=== PATIENT | male | born 1970 ===

== ENCOUNTER 2018-04-11 18:22 | Emergency (ER) | payer SELFPAY ==
[2018-04-11 18:42] VITALS: BP 145/83; PULSE 88; RESP 18; TEMP 99.1; O2SAT 97
[2018-04-11] MEDS ORDERED: Oxycodone/Acetaminophen 5/325 mg Tab PO STA (18:51)
--- NOTE | 2018-04-11 18:55 | ED PDOC ---
Arrival/HPI - General Chief Complaint: Dental Pain Historian: Patient - History of Present Illness Narrative History of Present Illness (Text): 04/11/18 18:52 47yo male who present with complaint of left sided lower gum pain/swelling/ discharge. Notes that he had incision and drainage done done on 3tooth last week by his [place] dentist. Notes that he is currently on Clindamycin and extra strength Tylenol. States the pain became worse over night and extra strength Tylenol is not helping. States he have appointment with his Dentist tomorrow morning at 9am in [facility]. He denies fever, chills, any other complaint. Past Medical History - Provider Review Nursing Documentation Reviewed: Yes - Pulmonary Hx Asthma: Yes - Psychiatric Hx Substance Use: No - Anesthesia Hx Anesthesia Reactions: No Hx Malignant Hyperthermia: No Family/Social History - Physician Review Nursing Documentation Reviewed: Yes Family/Social History: Unknown Family HX Smoking Status: Never Smoked Hx Alcohol Use: No Hx Substance Use: No Allergies/Home Meds Allergies/Adverse Reactions: Allergies ibuprofen [From Motrin] Allergy (Verified 04/11/18 18:37) URTICARIA ketorolac [From Toradol] Allergy (Verified 04/11/18 18:37) URTICARIA latex Allergy (Verified 04/11/18 18:37) URTICARIA levofloxacin [From Levaquin] Allergy (Verified 04/11/18 18:37) URTICARIA Penicillins Allergy (Verified 04/11/18 18:37) URTICARIA povidone-iodine [From Betadine] Allergy (Verified 04/11/18 18:37) URTICARIA soap [From Betadine] Allergy (Verified 04/11/18 18:37) URTICARIA tramadol Allergy (Verified 04/11/18 18:37) URTICARIA Review of Systems - Physician Review All systems were reviewed & negative as marked: Yes - Review of Systems Constitutional: Normal Eyes: Normal ENT: Other (Tooth pain) Respiratory: Normal Cardiovascular: Normal Gastrointestinal: Normal Genitourinary Male: Normal Musculoskeletal: Normal Skin: Normal Neurological: Normal Endocrine: Normal Hemo/Lymphatic: Normal Psychiatric: Normal Physical Exam Vital Signs Reviewed: Yes Vital Signs Temp Pulse Resp BP Pulse Ox 04/11/18 18:22 99.1 F 88 18 145/83 97 Temperature: Afebrile Blood Pressure: Normal Pulse: Regular Respiratory Rate: Normal Appearance: Positive for: Well-Appearing, Non-Toxic, Comfortable Pain Distress: None Mental Status: Positive for: Alert and Oriented X 3 - Systems Exam Head: Present: Atraumatic, Normocephalic Pupils: Present: PERRL Extroacular Muscles: Present: EOMI Conjunctiva: Present: Normal Mouth: Present: Moist Mucous Membranes. No: Normal Teeth (Poor dentition in general. Multiple missing and misalgined tooth noted. Mild swelling of left sided lower lateral gum surrounding the lateral incissor.) Neck: Present: Normal Range of Motion Respiratory/Chest: Present: Clear to Auscultation, Good Air Exchange. No: Respiratory Distress, Accessory Muscle Use Cardiovascular: Present: Regular Rate and Rhythm, Normal S1, S2. No: Murmurs Abdomen: No: Tenderness, Distention, Peritoneal Signs Back: Present: Normal Inspection Upper Extremity: Present: Normal Inspection. No: Cyanosis, Edema Lower Extremity: Present: Normal Inspection. No: Edema Neurological: Present: GCS=15, CN II-XII Intact, Speech Normal Skin: Present: Warm, Dry, Normal Color. No: Rashes Psychiatric: Present: Alert, Oriented x 3, Normal Insight, Normal Concentration Medical Decision Making ED Course and Treatment: 04/11/18 19:01 PT in ED for stated history. He was afebrile and hemodynamically stable. He is currently on Clindamycin and have appointment with his Dentist tomorrow at 0900am. He came to ED for pain control. He was treated with Percocet in ED and DC home to f/u with his Dentist tomorrow Disposition/Present on Arrival - Present on Arrival Any Indicators Present on Arrival: No History of DVT/PE: No History of Uncontrolled Diabetes: No Urinary Catheter: No History of Decub. Ulcer: No History Surgical Site Infection Following: None - Disposition Have Diagnosis and Disposition been Completed?: Yes Diagnosis: Dental abscess Disposition: HOME/ ROUTINE Disposition Time: 19:00 Patient Plan: Discharge Patient Problems: Current Active Problems Problem Status Onset Dental abscess Acute Condition: STABLE Discharge Instructions (ExitCare): Tooth Abscess (DC) Additional Instructions: Follow up with your doctor/Dentist Return to ED for any new or worsening symptoms Referrals: Joycelyn Montejo MD [Medical Doctor] - Follow up with primary Forms: [employer] ([place]ian)
== END 2018-04-11 19:05 | disposition home or self-care (01) ==
LOC: ED 18:22
DX: K04.7 Periapical abscess without sinus (principal)

== ENCOUNTER 2018-05-17 20:59 | Emergency (ER) | payer SELFPAY ==
[2018-05-17 21:15] VITALS: BP 126/80; PULSE 90; RESP 18; TEMP 98.3
[2018-05-17] MEDS ORDERED: Oxycodone/Acetaminophen 5/325 mg Tab PO STA (21:49)
--- NOTE | 2018-05-17 21:52 | ED PDOC ---
Arrival/HPI - General Chief Complaint: Dental Pain Time Seen by Provider: 05/17/18 21:04 Historian: Patient - History of Present Illness Narrative History of Present Illness (Text): 05/17/18 21:52 47-year-old male presents today requesting one dose of pain medication. Patient states he had 4 abscesses drained 3 days ago and is expected to follow-up tomorrow. Patient states he is currently on antibiotics states he is taking cli ndamycin. Patient states he just needs one dose of pain medication to hold him over until tomorrow. He denies trismus or drooling. No fevers or chills. No chest pain or shortness of breath. No other complaints. Past Medical History - Provider Review Nursing Documentation Reviewed: Yes - Travel History Have you recently traveled outside [place] w/in the past 3 mons?: No - Pulmonary Hx Asthma: Yes - Psychiatric Hx Substance Use: No - Anesthesia Hx Anesthesia: Yes Hx Anesthesia Reactions: No Hx Malignant Hyperthermia: No Family/Social History - Physician Review Nursing Documentation Reviewed: Yes Family/Social History: Unknown Family HX Smoking Status: Never Smoked Hx Alcohol Use: No Hx Substance Use: No Allergies/Home Meds Allergies/Adverse Reactions: Allergies ibuprofen [From Motrin] Allergy (Verified 04/11/18 18:37) URTICARIA ketorolac [From Toradol] Allergy (Verified 04/11/18 18:37) URTICARIA latex Allergy (Verified 04/11/18 18:37) URTICARIA levofloxacin [From Levaquin] Allergy (Verified 04/11/18 18:37) URTICARIA Penicillins Allergy (Verified 04/11/18 18:37) URTICARIA povidone-iodine [From Betadine] Allergy (Verified 04/11/18 18:37) URTICARIA soap [From Betadine] Allergy (Verified 04/11/18 18:37) URTICARIA tramadol Allergy (Verified 04/11/18 18:37) URTICARIA Review of Systems - Review of Systems Constitutional: absent: Fatigue, Fevers ENT: Other (right sided dental pain) Respiratory: absent: SOB, Cough Cardiovascular: absent: Chest Pain, Palpitations Gastrointestinal: absent: Abdominal Pain, Nausea, Vomiting Musculoskeletal: absent: Back Pain, Neck Pain Skin: absent: Rash Neurological: absent: Headache, Dizziness Psychiatric: absent: Anxiety, Depression Physical Exam Vital Signs Reviewed: Yes Vital Signs Temp Pulse Resp BP Pulse Ox 05/17/18 20:59 98.3 F 90 18 126/80 97 Temperature: Afebrile Blood Pressure: Normal Pulse: Regular Respiratory Rate: Normal Appearance: Positive for: Well-Appearing, Non-Toxic, Comfortable Pain Distress: None Mental Status: Positive for: Alert and Oriented X 3 - Systems Exam Head: Present: Atraumatic Ears: Present: Normal (bilateral cauliflower ears right worse than left no erythema no tenderness), NORMAL TM Mouth: Present: Moist Mucous Membranes. No: Drooling, Trismus, Normal Teeth (multiple dental fractures noted to right lower molars. no erythema; no edema. ) Pharnyx: Present: Normal. No: ERYTHEMA, EXUDATE Nose (External): Present: Atraumatic Nose (Internal): Present: Normal Inspection Neck: Present: Normal Range of Motion, Trachea Midline. No: Lymphadenopathy Respiratory/Chest: Present: Clear to Auscultation, Good Air Exchange. No: Respiratory Distress, Accessory Muscle Use Cardiovascular: Present: Regular Rate and Rhythm, Normal S1, S2. No: Murmurs Neurological: Present: GCS=15, Speech Normal Skin: Present: Warm, Dry, Normal Color. No: Rashes Psychiatric: Present: Alert, Oriented x 3 Medical Decision Making ED Course and Treatment: 05/17/18 22:42 Patient is nontoxic well-appearing in no distress with stable vital signs No trismus or drooling, moist mucous membranes pt requesting percocet; I advised follow-up with the dentist within the next 2 days. I advised immediate return is symptoms worsen persist or if new concerning symptoms develop pt states he has appointment tomorrow with dentist. Patient verbalizes understanding of discharge instructions and need for immediate followup. Impression: dental pain finish antibiotics as prescribed. Follow-up with the dentist within the next 2 days Return immediately if symptoms worsen persist or if new concerning symptoms develop Disposition/Present on Arrival - Present on Arrival Any Indicators Present on Arrival: No History of DVT/PE: No History of Uncontrolled Diabetes: No Urinary Catheter: No History of Decub. Ulcer: No History Surgical Site Infection Following: None - Disposition Have Diagnosis and Disposition been Completed?: Yes Diagnosis: Pain, dental Disposition: HOME/ ROUTINE Disposition Time: 21:50 Patient Plan: Discharge Condition: GOOD Discharge Instructions (ExitCare): Dental Pain Additional Instructions: finish antibiotics as prescribed. Follow-up with the dentist within the next 2 days Return immediately if symptoms worsen persist or if new concerning symptoms develop Referrals: Catarino Cortez DMD [Staff Provider] - Follow up with primary [employer] [Outside] - Follow up with primary Joycelyn Montejo MD [Medical Doctor] - Follow up with primary Forms: [employer] (E[place]ian), WORK NOTE
[2018-05-17 22:22] VITALS: O2SAT 98
== END 2018-05-17 22:21 | disposition home or self-care (01) ==
LOC: ED 20:59
DX: K08.89 Other specified disorders of teeth and supporting structures (principal)

== ENCOUNTER 2018-05-18 17:38 | Emergency (ER) | payer SELFPAY ==
[2018-05-18 17:47] VITALS: BMI 25.1
[2018-05-18 19:13] VITALS: BP 114/80; RESP 18; TEMP 97.9; O2SAT 99
--- NOTE | 2018-05-18 19:29 | ED PDOC ---
Arrival/HPI - General Chief Complaint: Dental Pain Time Seen by Provider: 05/18/18 18:37 Historian: Patient - History of Present Illness Narrative History of Present Illness (Text): 05/18/18 19:44 47-year-old male presents today requesting Percocet for pain. Patient states he missed his dentist appointment today and needs Percocet for the pain. Patient states he is currently on clindamycin. Patient denies fevers or chills no headaches or dizziness. Patient was seen in the emergency room yesterday for same complaint. Past Medical History - Provider Review Nursing Documentation Reviewed: Yes - Travel History Have you recently traveled outside [place] w/in the past 3 mons?: No - Pulmonary Hx Asthma: Yes - Psychiatric Hx Substance Use: No - Anesthesia Hx Anesthesia: Yes Hx Anesthesia Reactions: No Hx Malignant Hyperthermia: No Family/Social History - Physician Review Nursing Documentation Reviewed: Yes Family/Social History: Unknown Family HX Smoking Status: Never Smoked Hx Alcohol Use: No Hx Substance Use: No Allergies/Home Meds Allergies/Adverse Reactions: Allergies ibuprofen [From Motrin] Allergy (Verified 05/18/18 18:20) URTICARIA ketorolac [From Toradol] Allergy (Verified 05/18/18 18:20) URTICARIA latex Allergy (Verified 05/18/18 18:20) URTICARIA levofloxacin [From Levaquin] Allergy (Verified 05/18/18 18:20) URTICARIA Penicillins Allergy (Verified 05/18/18 18:20) URTICARIA povidone-iodine [From Betadine] Allergy (Verified 05/18/18 18:20) URTICARIA soap [From Betadine] Allergy (Verified 05/18/18 18:20) URTICARIA tramadol Allergy (Verified 05/18/18 18:20) URTICARIA Home Medications: Home Meds Medication Instructions Recorded Confirmed Clindamycin [Cleocin] 300 mg PO TID 05/18/18 05/18/18 Review of Systems - Review of Systems Constitutional: absent: Fatigue, Fevers ENT: Other (dental pain) Respiratory: absent: SOB, Cough Cardiovascular: absent: Chest Pain, Palpitations Gastrointestinal: absent: Abdominal Pain, Nausea, Vomiting Skin: absent: Rash, Pruritis Neurological: absent: Headache, Dizziness Psychiatric: absent: Anxiety, Depression Physical Exam Vital Signs Reviewed: Yes Vital Signs Temp Pulse Resp BP Pulse Ox 05/18/18 19:12 97.9 F 104 H 18 114/80 99 Temperature: Afebrile Blood Pressure: Normal Pulse: Tachycardic Respiratory Rate: Normal Appearance: Positive for: Well-Appearing, Non-Toxic, Comfortable Pain Distress: None Mental Status: Positive for: Alert and Oriented X 3 - Systems Exam Head: Present: Atraumatic Pupils: Present: PERRL Extroacular Muscles: Present: EOMI Mouth: Present: Moist Mucous Membranes. No: Normal Teeth (poor dentition. right lower dental fracture without erythema. left upper dental fracture without erythema. left lower dental fractures, no erythema; no swelling no trismus or drooling.) Pharnyx: Present: Normal. No: ERYTHEMA, EXUDATE Neck: Present: Normal Range of Motion, Trachea Midline Respiratory/Chest: Present: Clear to Auscultation, Good Air Exchange. No: Respiratory Distress, Accessory Muscle Use Cardiovascular: Present: Regular Rate and Rhythm, Normal S1, S2. No: Murmurs Skin: Present: Warm, Dry Psychiatric: Present: Alert, Oriented x 3 Medical Decision Making ED Course and Treatment: 05/18/18 19:42 47-year-old male presents today in no distress with stable vital signs requesting Percocet for toothache. Patient was seen in the emergency room yesterday and was given Percocet for pain as he stated that he had an appointment with his dentist today. Patient claims that he missed his appointment and needs pain medicine. Patient states he is currently on clindamycin. I have advised the patient that I cannot give him Percocet for his pain but I will give him Tylenol for his pain and he can follow-up with a dentist. Patient is refusing Tylenol for pain. He was advised to continue his antibiotics as prescribed by his dentist and follow-up with his dentist. And return if symptoms worsen persist or if new concerning symptoms develop In the emergency room the patient is yelling and screaming and is refusing to take the Tylenol states he wants pain medications and he should be getting P ercocet. Patient verbalizes understanding of discharge instructions and need for immediate followup. All aspects of this case were discussed the attending of record. Impression: Toothache take your antibiotics as prescribed by your dentist follow up with the dentist within the next 2 days. return if symptoms worsen, persist or if new symptoms develop. Disposition/Present on Arrival - Present on Arrival Any Indicators Present on Arrival: No History of DVT/PE: No History of Uncontrolled Diabetes: No Urinary Catheter: No History of Decub. Ulcer: No History Surgical Site Infection Following: None - Disposition Have Diagnosis and Disposition been Completed?: Yes Diagnosis: Toothache Disposition: HOME/ ROUTINE Disposition Time: 19:27 Patient Plan: Discharge Patient Problems: Current Active Problems Problem Status Onset Toothache Acute Condition: GOOD Discharge Instructions (ExitCare): Dental Pain (DC) Additional Instructions: take your antibiotics as prescribed by your dentist follow up with the dentist within the next 2 days. return if symptoms worsen, persist or if new symptoms develop. Referrals: Catarino Cortez DMD [Staff Provider] - Follow up with primary [employer] [Outside] - Follow up with primary Joycelyn Montejo MD [Medical Doctor] - Follow up with primary Forms: [employer] ([place]ander)
[2018-05-18 19:51] VITALS: PULSE 92
== END 2018-05-18 19:30 | disposition home or self-care (01) ==
LOC: ED 17:38
DX: K08.89 Other specified disorders of teeth and supporting structures (principal)